=== PATIENT | male | born 1995 | race Two or more races ===

== ENCOUNTER 2024-05-21 19:16 | Emergency (ER) | payer OTHER ==
[~2024-05-21] VITALS: Ht 175.3 cm; Wt 74.5 kg
[2024-05-21 19:26] VITALS: BP 131/73; PULSE 68; RESP 18; TEMP 98; O2SAT 100
[2024-05-21] MEDS ORDERED: MOXI3DRO25 OS (23:21)
== END 2024-05-21 23:43 | disposition home or self-care (01) ==
LOC: EMS 19:16
DX: T15.12XA Foreign body in conjunctival sac, left eye, initial encounter (principal); Z90.49 Acquired absence of other specified parts of digestive tract; W44.8XXA Other foreign body entering into or through a natural orifice, initial encounter; Y93.89 Activity, other specified; Y92.89 Other specified places as the place of occurrence of the external cause; Y99.8 Other external cause status
CPT/HCPCS: 65205; 99284; Z7502